=== PATIENT | female | born 2000 | race Caucasian/White ===

== ENCOUNTER 2022-02-14 17:10 | Emergency (ER) | payer OTHER, SELFPAY ==
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
[2022-02-14 17:28] VITALS: BP 123/75; PULSE 97; RESP 16; TEMP 36.7; O2SAT 97
[2022-02-14 17:30] VITALS: BP 123/75; PULSE 97; RESP 16; TEMP 36.7; O2SAT 97
== END 2022-02-14 18:02 | disposition home or self-care (01) ==
PROVIDERS: Emergency Provider Nurse Practitioner Family
DX: M25.461 Effusion, right knee (principal)
CPT/HCPCS: 73564; 99213; G0463